=== PATIENT | female | born 1950 | race Caucasian/White ===

== ENCOUNTER 2020-12-21 15:22 | Emergency (ER) | payer MEDICARE ==
[~2020-12-21] VITALS: Ht 167.6 cm; Wt 93.0 kg
[~2020-12-21 15:22] MED LIST: ATENOL/CHLOR1 TA2 PO; AZITHROMYCIN250 MG PO; CIPRODEX1 ML OT; CIPROFLOXACN500 MG PO; CO Q10 PO; CORTISPORIN OTI10 M2 AS; CORTISPORIN OTI10 ML AU; GLYBURIDE5 MG PO; KEFLEX500 MG PO; PRILOSEC OTC20 MG PO; PRILOSEC40 MG PO; TORADOL PO; TRAZODONE100 MG; TRAZODONE150 MG PO; VOSOL2 % OT; ZIAC 55 MG; ZIAC 55 MG PO; ZITHROMAX250 MG PO; ZITHROMAX500 MG PO; ZOLOFT100 MG PO; ZOLOFT50 MG; ZOLPIDEM5 M1 PO; [UNRECOGNIZED DRUG - OTHER] PO
[2020-12-21 17:00] VITALS: BP 143/63
== END 2020-12-21 17:00 | disposition home or self-care (01) ==
LOC: ED 15:22
DX: Z48.01 Encounter for change or removal of surgical wound dressing (principal); E11.9 Type 2 diabetes mellitus without complications; I10 Essential (primary) hypertension; C50.911 Malignant neoplasm of unspecified site of right female breast; Z90.11 Acquired absence of right breast and nipple; Z79.84 Long term (current) use of oral hypoglycemic drugs

== ENCOUNTER 2021-05-22 15:00 | Emergency (ER) | payer MEDICARE ==
[2021-05-22] VITALS (15 sets, daily range): BP systolic 125–189; BP diastolic 57–92
[~2021-05-22] VITALS: Ht 167.6 cm; Wt 89.0 kg
[2021-05-22] MEDS ORDERED: ATENOLOL25 MG PO (16:17)
[2021-05-22] MEDS ORDERED: HYDROCHLOROTH12.5 M1 PO (16:17)
[2021-05-22] MEDS ORDERED: GLYBURIDE5 M1 PO (16:18)
[2021-05-22] MEDS ORDERED: ZOLOFT25 MG PO (16:19)
[2021-05-22] MEDS ORDERED: METFORMIN HCL750 MG PO (16:19)
[2021-05-22] MEDS ORDERED: PROBIOTI2 (16:19)
[2021-05-22] MEDS ORDERED: AMBIEN5 MG PO (16:21)
[2021-05-22] MEDS ORDERED: TRAZODONE50 MG PO (16:21)
[2021-05-22 16:24] LABS: HEMATOCRIT 30.4 % (37.0-47.0); HEMOGLOBIN 9.7 g/dl (12.0-16.0); IMMATURE GRANULOCYTES 1.9 % (0.0-5.0); MEAN CORPUSCULAR HGB 32.6 pG CALC (26.0-32.0); MEAN CORPUSCULAR HGB CONC 31.9 g/dL CAL (32.0-36.0); NEUT# 4.28 thou/uL (2.00-7.15); RED BLOOD COUNT 2.98 mill/uL (4.20-5.60); RED CELL DISTRI WIDTH 14.3 % (11.5-15.5)
[2021-05-22 16:40] LABS: ACT PARTIAL THROMBO TIME 23.2 SECONDS (20.0-32.5); INTERNATIONAL NORMALIZED RATIO 0.9 RATIO (0.7-1.3); PROTHROMBIN TIME 9.8 SECONDS (9.0-12.5)
[2021-05-22 16:45] LABS: BILIRUBIN, TOTAL 0.3 mg/dL (0.0-1.4); BUN 16 mg/dL (8-23); BUN/CREATININE RATIO 23 (12-20 (CALC)); CHLORIDE 100 mmol/l (95-108); CREATININE 0.7 mg/dL (0.5-1.0); GFR > 60 ML/MIN (>=60 (CALC)); GFR FOR AFR.AMER. > 60 ML/MIN (>=60 (CALC)); POTASSIUM 3.4 mmol/l (3.5-5.1); SODIUM 135 mmol/l (137-146); TOTAL PROTEIN 6.9 g/dL (6.3-8.2)
[2021-05-22 16:52] LABS: ALKALINE PHOSPHATASE 144 u/l (38-126); ANION GAP 17 (6-22 (CALC)); CARBON DIOXIDE 21 mmol/l (22-30); SGOT/AST 33 u/l (9-36)
[2021-05-22 16:59] LABS: URINE BILIRUBIN - DIPSTICK NEGATIVE (NEGATIVE); URINE BLOOD DIPSTICK TRACE-INTACT (NEGATIVE); URINE COLOR YELLOW; URINE GLUCOSE - DIPSTICK >=1000 mg/dL (NEGATIVE); URINE KETONE NEGATIVE (NEGATIVE); URINE LEUK ESTERASE NEGATIVE (NEGATIVE); URINE PROTEIN - DIPSTICK NEGATIVE (NEG-TRACE); URINE SPECIFIC GRAVITY 1.015; URINE UROBILINOGEN - DIPSTICK 0.2 E.U./dL (0.2)
[2021-05-22 17:02] LABS: URINE NITRITE - DIPSTICK POSITIVE (Negative)
[2021-05-22 17:09] LABS: URINE BACTERIA MODERATE hpf; URINE RBC 0-2 RBC/hpf (0-5); URINE SQUAMOUS EPITHELIAL CELL FEW EPI/hpf (0-FEW)
[2021-05-23] VITALS: BP 160/78
[2021-05-23 00:26] VITALS: BP 160/78
== END 2021-05-23 00:26 | disposition short-term general hospital (02) ==
LOC: ED 15:00
DX: A41.9 Sepsis, unspecified organism (principal); J18.9 Pneumonia, unspecified organism; J32.9 Chronic sinusitis, unspecified; N39.0 Urinary tract infection, site not specified; C50.911 Malignant neoplasm of unspecified site of right female breast; I10 Essential (primary) hypertension; E11.9 Type 2 diabetes mellitus without complications; B96.20 Unspecified Escherichia coli [E. coli] as the cause of diseases classified elsewhere; Z90.11 Acquired absence of right breast and nipple; Z95.828 Presence of other vascular implants and grafts; Z79.899 Other long term (current) drug therapy; Z79.84 Long term (current) use of oral hypoglycemic drugs; Z20.822 Contact with and (suspected) exposure to COVID-19
CPT/HCPCS: J2060; Q9967

== ENCOUNTER 2022-03-14 09:35 | Emergency (ER) | payer MEDICARE ==
[~2022-03-14] VITALS: Ht 167.6 cm; Wt 106.6 kg
[2022-03-14] VITALS (7 sets, daily range): BP systolic 133–176; BP diastolic 54–85
[~2022-03-14 09:35] MED LIST changes: +AMBIEN5 MG PO; +ATENOLOL25 MG PO; +GLYBURIDE5 M1 PO; +HYDROCHLOROTH12.5 M1 PO; +METFORMIN HCL750 MG PO; +PROBIOTI2; +TRAZODONE50 MG PO; +ZOLOFT25 MG PO
== END 2022-03-14 11:24 | disposition home or self-care (01) ==
LOC: ED 09:35
DX: S00.83XA Contusion of other part of head, initial encounter (principal); W01.0XXA Fall on same level from slipping, tripping and stumbling without subsequent striking against object, initial encounter; Y93.K9 Activity, other involving animal care; Y92.71 Barn as the place of occurrence of the external cause; I10 Essential (primary) hypertension; E11.9 Type 2 diabetes mellitus without complications; Z79.84 Long term (current) use of oral hypoglycemic drugs

== ENCOUNTER 2022-05-12 06:44 | Emergency (ER) | payer MEDICARE ==
[2022-05-12] VITALS (20 sets, daily range): BP systolic 107–145; BP diastolic 55–72
[~2022-05-12] VITALS: Ht 167.6 cm; Wt 96.9 kg
[2022-05-12 08:14] LABS: BASO% 0.3 % (0-3); IMMATURE GRANULOCYTES 0.3 % (0.0-5.0); LYMPH% 17.4 % (15-41); MEAN CORPUSCULAR HGB 29.6 pG CALC (26.0-32.0); MEAN CORPUSCULAR HGB CONC 32.2 g/dL CAL (32.0-36.0); MONO% 10.3 % (2-13); NEUT# 2.51 thou/uL (2.00-7.15); NEUT% 71.7 % (42-76); RED BLOOD COUNT 4.16 mill/uL (4.20-5.60); RED CELL DISTRI WIDTH 12.5 % (11.5-15.5)
[2022-05-12 08:19] LABS: HEMATOCRIT 38.2 % (37.0-47.0); HEMOGLOBIN 12.3 g/dl (12.0-16.0); MEAN CELL VOLUME 91.8 fL CALC (80.0-100.0)
[2022-05-12 08:31] LABS: ALBUMIN 4.1 g/dL (3.2-5.0); ALKALINE PHOSPHATASE 89 u/l (38-126); ANION GAP 19 (6-22 (CALC)); BUN 35 mg/dL (8-23); BUN/CREATININE RATIO 26 (12-20 (CALC)); CARBON DIOXIDE 21 mmol/l (22-30); CHLORIDE 93 mmol/l (95-108); CREATININE 1.3 mg/dL (0.5-1.0); GFR FOR AFR.AMER. 49 ML/MIN (>=60 (CALC)); GFR OTHER RACES 40 ML/MIN (>=60 (CALC)); LIPASE 163 u/l (23-300); SGOT/AST 45 u/l (9-36); SODIUM 130 mmol/l (137-146)
[2022-05-12 08:45] LABS: BILIRUBIN, TOTAL 0.5 mg/dL (0.02-1.3)
[2022-05-12] MEDS ORDERED: ONDANSETRON4 MG PO (10:08)
[2022-05-12] MEDS ORDERED: K-TAB20 MEQ PO (10:47)
== END 2022-05-12 12:46 | disposition home or self-care (01) ==
LOC: ED 06:44
PROVIDERS: Emergency Medicine
DX: K52.9 Noninfective gastroenteritis and colitis, unspecified (principal); E87.6 Hypokalemia; N17.9 Acute kidney failure, unspecified; E87.1 Hypo-osmolality and hyponatremia; I10 Essential (primary) hypertension; E11.9 Type 2 diabetes mellitus without complications; Z85.3 Personal history of malignant neoplasm of breast; Z79.84 Long term (current) use of oral hypoglycemic drugs; Z20.822 Contact with and (suspected) exposure to COVID-19

== ENCOUNTER 2022-05-16 11:35 | Inpatient (IN) | payer MEDICARE ==
[~2022-05-16] VITALS: Ht 167.6 cm; Wt 108.9 kg
[2022-05-16] VITALS (18 sets, daily range): BP systolic 111–172; BP diastolic 54–96
[~2022-05-16 11:35] MED LIST changes: +K-TAB20 MEQ PO; +ONDANSETRON4 MG PO
[2022-05-16 12:15] LABS: IMMATURE GRANULOCYTES 0.6 % (0.0-5.0); LYMPH% 4.3 % (15-41); MEAN CELL VOLUME 91.1 fL CALC (80.0-100.0); MEAN CORPUSCULAR HGB 29.7 pG CALC (26.0-32.0); MEAN CORPUSCULAR HGB CONC 32.6 g/dL CAL (32.0-36.0); MONO% 8.9 % (2-13); NEUT# 6.19 thou/uL (2.00-7.15); NEUT% 86.2 % (42-76); RED BLOOD COUNT 3.47 mill/uL (4.20-5.60); RED CELL DISTRI WIDTH 12.5 % (11.5-15.5)
[2022-05-16 12:19] LABS: HEMATOCRIT 31.6 % (37.0-47.0); HEMOGLOBIN 10.3 g/dl (12.0-16.0)
[2022-05-16 12:40] LABS: ALBUMIN 3.5 g/dL (3.2-5.0); ALKALINE PHOSPHATASE 108 u/l (38-126); ANION GAP 22 (6-22 (CALC)); BILIRUBIN, TOTAL 0.8 mg/dL (0.02-1.3); BUN 17 mg/dL (8-23); BUN/CREATININE RATIO 18 (12-20 (CALC)); CARBON DIOXIDE 17 mmol/l (22-30); CHLORIDE 91 mmol/l (95-108); CREATININE 0.9 mg/dL (0.5-1.0); GFR FOR AFR.AMER. > 60 ML/MIN (>=60 (CALC)); GFR OTHER RACES > 60 ML/MIN (>=60 (CALC)); LIPASE 26 u/l (23-300); SGOT/AST 23 u/l (9-36); SODIUM 127 mmol/l (137-146); TOTAL PROTEIN 6.5 g/dL (6.3-8.2)
[2022-05-16 14:33] LABS: URINE BILIRUBIN - DIPSTICK NEGATIVE (NEGATIVE); URINE BLOOD DIPSTICK MODERATE (NEGATIVE); URINE COLOR YELLOW; URINE GLUCOSE - DIPSTICK >=1000 mg/dL (NEGATIVE); URINE KETONE 40 mg/dL (NEGATIVE); URINE LEUK ESTERASE NEGATIVE (NEGATIVE); URINE PH 5.5 (4.5-8.0); URINE PROTEIN - DIPSTICK 100 mg/dL (NEG-TRACE); URINE SPECIFIC GRAVITY 1.025; URINE UROBILINOGEN - DIPSTICK 0.2 E.U./dL (0.2)
[2022-05-16 14:36] LABS: URINE NITRITE - DIPSTICK POSITIVE (Negative)
[2022-05-16 14:42] LABS: URINE BACTERIA FEW hpf; URINE RBC 0-2 RBC/hpf (0-5); URINE SQUAMOUS EPITHELIAL CELL FEW EPI/hpf (0-FEW)
[2022-05-17] VITALS (7 sets, daily range): BP systolic 114–146; BP diastolic 46–69
[2022-05-17 05:34] LABS: EOS% 0.2 % (0-8); HEMATOCRIT 28.7 % (37.0-47.0); HEMOGLOBIN 9.5 g/dl (12.0-16.0); MEAN CELL VOLUME 90.8 fL CALC (80.0-100.0); MEAN CORPUSCULAR HGB 30.1 pG CALC (26.0-32.0); MEAN CORPUSCULAR HGB CONC 33.1 g/dL CAL (32.0-36.0); MONO% 9.2 % (2-13); NEUT# 5.3 thou/uL (2.00-7.15); NEUT% 81.7 % (42-76); RED BLOOD COUNT 3.16 mill/uL (4.20-5.60); RED CELL DISTRI WIDTH 12.5 % (11.5-15.5)
[2022-05-17 05:43] LABS: ALBUMIN 2.9 g/dL (3.2-5.0); ALKALINE PHOSPHATASE 91 u/l (38-126); BUN 16 mg/dL (8-23); BUN/CREATININE RATIO 19 (12-20 (CALC)); CARBON DIOXIDE 20 mmol/l (22-30); CREATININE 0.9 mg/dL (0.5-1.0); GFR FOR AFR.AMER. > 60 ML/MIN (>=60 (CALC)); GFR OTHER RACES > 60 ML/MIN (>=60 (CALC)); POTASSIUM 3.2 mmol/l (3.5-5.1); SGOT/AST 21 u/l (9-36); TOTAL PROTEIN 5.3 g/dL (6.3-8.2)
[2022-05-17 05:44] LABS: ANION GAP 13 (6-22 (CALC)); BILIRUBIN, TOTAL 0.4 mg/dL (0.02-1.3); CHLORIDE 105 mmol/l (95-108); SODIUM 135 mmol/l (137-146)
[2022-05-17 05:53] LABS: IMMATURE GRANULOCYTES 0.9 % (0.0-5.0)
[2022-05-18] VITALS (11 sets, daily range): BP systolic 129–149; BP diastolic 56–82
[2022-05-18 05:32] LABS: HEMOGLOBIN 8.7 g/dl (12.0-16.0); MEAN CELL VOLUME 92.2 fL CALC (80.0-100.0); MEAN CORPUSCULAR HGB 29.7 pG CALC (26.0-32.0); MEAN CORPUSCULAR HGB CONC 32.2 g/dL CAL (32.0-36.0); RED BLOOD COUNT 2.93 mill/uL (4.20-5.60); RED CELL DISTRI WIDTH 12.8 % (11.5-15.5)
[2022-05-18 05:49] LABS: ALBUMIN 2.6 g/dL (3.2-5.0); ALKALINE PHOSPHATASE 74 u/l (38-126); ANION GAP 11 (6-22 (CALC)); BILIRUBIN, TOTAL 0.3 mg/dL (0.02-1.3); BUN 12 mg/dL (8-23); BUN/CREATININE RATIO 16 (12-20 (CALC)); CARBON DIOXIDE 20 mmol/l (22-30); CHLORIDE 107 mmol/l (95-108); CREATININE 0.7 mg/dL (0.5-1.0); GFR FOR AFR.AMER. > 60 ML/MIN (>=60 (CALC)); GFR OTHER RACES > 60 ML/MIN (>=60 (CALC)); MAGNESIUM 1.6 mg/dL (1.6-2.3); POTASSIUM 3.1 mmol/l (3.5-5.1); SGOT/AST 16 u/l (9-36); SODIUM 134 mmol/l (137-146); TOTAL PROTEIN 5.3 g/dL (6.3-8.2)
[2022-05-19 04:05] VITALS: BP 148/74
[2022-05-19 05:53] LABS: MEAN CELL VOLUME 92.7 fL CALC (80.0-100.0); MEAN CORPUSCULAR HGB 29.7 pG CALC (26.0-32.0); RED BLOOD COUNT 3.84 mill/uL (4.20-5.60); RED CELL DISTRI WIDTH 12.8 % (11.5-15.5)
[2022-05-19 05:54] LABS: ALBUMIN 2.6 g/dL (3.2-5.0); ALKALINE PHOSPHATASE 79 u/l (38-126); ANION GAP 10 (6-22 (CALC)); BILIRUBIN, TOTAL 0.4 mg/dL (0.02-1.3); BUN 10 mg/dL (8-23); BUN/CREATININE RATIO 13 (12-20 (CALC)); CARBON DIOXIDE 23 mmol/l (22-30); CHLORIDE 106 mmol/l (95-108); CREATININE 0.7 mg/dL (0.5-1.0); GFR FOR AFR.AMER. > 60 ML/MIN (>=60 (CALC)); GFR OTHER RACES > 60 ML/MIN (>=60 (CALC)); MAGNESIUM 1.4 mg/dL (1.6-2.3); POTASSIUM 3.4 mmol/l (3.5-5.1); SGOT/AST 18 u/l (9-36); SODIUM 137 mmol/l (137-146); TOTAL PROTEIN 5.3 g/dL (6.3-8.2)
[2022-05-19 05:56] LABS: HEMATOCRIT 35.6 % (37.0-47.0); HEMOGLOBIN 11.4 g/dl (12.0-16.0)
[2022-05-19 06:28] VITALS: BP 146/72
[2022-05-19 08:00] VITALS: BP 146/72
[2022-05-19 15:13] VITALS: BP 145/64
[2022-05-19 16:17] VITALS: BP 145/64
[2022-05-19 19:50] VITALS: BP 137/55
[2022-05-20 00:37] VITALS: BP 149/63
[2022-05-20 03:52] VITALS: BP 149/66
[2022-05-20 06:12] LABS: MEAN CELL VOLUME 94.8 fL CALC (80.0-100.0); MEAN CORPUSCULAR HGB 29.7 pG CALC (26.0-32.0); MEAN CORPUSCULAR HGB CONC 31.4 g/dL CAL (32.0-36.0); RED BLOOD COUNT 2.86 mill/uL (4.20-5.60)
[2022-05-20 06:13] LABS: HEMATOCRIT 27.1 % (37.0-47.0); HEMOGLOBIN 8.5 g/dl (12.0-16.0)
[2022-05-20 06:34] VITALS: BP 156/58
[2022-05-20 06:38] LABS: ALBUMIN 2.7 g/dL (3.2-5.0); ALKALINE PHOSPHATASE 83 u/l (38-126); ANION GAP 8 (6-22 (CALC)); BILIRUBIN, TOTAL 0.3 mg/dL (0.02-1.3); BUN 10 mg/dL (8-23); BUN/CREATININE RATIO 16 (12-20 (CALC)); CHLORIDE 103 mmol/l (95-108); CREATININE 0.7 mg/dL (0.5-1.0); GFR FOR AFR.AMER. > 60 ML/MIN (>=60 (CALC)); GFR OTHER RACES > 60 ML/MIN (>=60 (CALC)); MAGNESIUM 1.5 mg/dL (1.6-2.3); POTASSIUM 3.4 mmol/l (3.5-5.1); SGOT/AST 20 u/l (9-36); SODIUM 137 mmol/l (137-146); TOTAL PROTEIN 5.4 g/dL (6.3-8.2)
[2022-05-20 06:39] LABS: CARBON DIOXIDE 29 mmol/l (22-30)
[2022-05-20] MEDS ORDERED: PANTOPRAZOLE SO40 M1 PO (09:06)
[2022-05-20] MEDS ORDERED: LEVAQUIN750 M1 PO (09:06)
[2022-05-20 10:06] VITALS: BP 161/55
[2022-05-20 14:44] VITALS: BP 112/51
== END 2022-05-20 14:50 | disposition home or self-care (01) | DRG 872 ==
LOC: ED 11:35 → ED-I 15:10 → ED 15:26 → MS2 15:27
PROVIDERS: Family Medicine; ADMIT Internal Medicine; ATTEND Internal Medicine
DX: A41.51 Sepsis due to Escherichia coli [E. coli] (principal); N39.0 Urinary tract infection, site not specified; I10 Essential (primary) hypertension; E11.9 Type 2 diabetes mellitus without complications; E87.6 Hypokalemia; C50.911 Malignant neoplasm of unspecified site of right female breast; R59.0 Localized enlarged lymph nodes; K52.9 Noninfective gastroenteritis and colitis, unspecified; F32.A Depression, unspecified; F41.9 Anxiety disorder, unspecified; Z88.0 Allergy status to penicillin; Z79.84 Long term (current) use of oral hypoglycemic drugs; Z90.11 Acquired absence of right breast and nipple; Z20.822 Contact with and (suspected) exposure to COVID-19
CPT/HCPCS: J1650; J3475; Q9967

== ENCOUNTER 2023-02-13 20:42 | Emergency (ER) | payer MEDICARE ==
[~2023-02-13] VITALS: Ht 167.6 cm; Wt 91.2 kg
[2023-02-13] VITALS (14 sets, daily range): BP systolic 119–136; BP diastolic 38–71
[~2023-02-13 20:42] MED LIST changes: +LEVAQUIN750 M1 PO; +PANTOPRAZOLE SO40 M1 PO
[2023-02-13 22:10] LABS: BASO% 0.4 % (0-3); HEMOGLOBIN 7.4 g/dl (12.0-16.0); IMMATURE GRANULOCYTES 0.8 % (0.0-5.0); LYMPH% 6.9 % (15-41); MEAN CORPUSCULAR HGB 33.8 pG CALC (26.0-32.0); MEAN CORPUSCULAR HGB CONC 30.8 g/dL CAL (32.0-36.0); NEUT# 2.14 thou/uL (2.00-7.15); NEUT% 81.9 % (42-76); RED BLOOD COUNT 2.19 mill/uL (4.20-5.60); RED CELL DISTRI WIDTH 15.1 % (11.5-15.5)
[2023-02-13 22:13] LABS: MEAN CELL VOLUME 109.6 fL CALC (80.0-100.0)
[2023-02-13 22:35] LABS: ALKALINE PHOSPHATASE 88 u/l (38-126); BUN 16 mg/dL (8-23); BUN/CREATININE RATIO 20 (12-20 (CALC)); CHLORIDE 97 mmol/l (95-108); CREATININE 0.8 mg/dL (0.5-1.0); GFR FOR AFR.AMER. > 60 ML/MIN (>=60 (CALC)); GFR OTHER RACES > 60 ML/MIN (>=60 (CALC)); POTASSIUM 2.8 mmol/l (3.5-5.1); SODIUM 135 mmol/l (137-146)
[2023-02-13 22:47] LABS: ALBUMIN 3.9 g/dL (3.2-5.0); ANION GAP 20 (6-22 (CALC)); BILIRUBIN, TOTAL 0.7 mg/dL (0.02-1.3); CARBON DIOXIDE 21 mmol/l (22-30); SGOT/AST 99 u/l (9-36); TOTAL PROTEIN 6.5 g/dL (6.3-8.2)
[2023-02-14] VITALS (9 sets, daily range): BP systolic 114–139; BP diastolic 47–65
[2023-02-14 02:20] LABS: URINE BLOOD DIPSTICK Negative (NEGATIVE); URINE GLUCOSE - DIPSTICK 500 mg/dL (NEGATIVE); URINE KETONE 40 mg/dL (NEGATIVE); URINE NITRITE - DIPSTICK Negative (Negative); URINE PH 5.5 (4.5-8.0); URINE PROTEIN - DIPSTICK Negative (NEG-TRACE); URINE UROBILINOGEN - DIPSTICK 0.2 E.U./dL (0.2)
[2023-02-14 02:31] LABS: URINE COLOR Yellow
[2023-02-14 02:32] LABS: URINE LEUK ESTERASE Negative (NEGATIVE)
[2023-02-14] MEDS ORDERED: COMPAZINE10 MG PO (02:39)
[2023-02-14] MEDS ORDERED: POTASSIUM CHLO20 ME1 PO (02:39)
== END 2023-02-14 02:25 | disposition home or self-care (01) ==
LOC: ED 20:42
PROVIDERS: Family Medicine
DX: K52.9 Noninfective gastroenteritis and colitis, unspecified (principal); E87.6 Hypokalemia; I10 Essential (primary) hypertension; E11.9 Type 2 diabetes mellitus without complications; Z79.84 Long term (current) use of oral hypoglycemic drugs; Z20.822 Contact with and (suspected) exposure to COVID-19